=== PATIENT | male | born 1960 | race Caucasian/White ===

== ENCOUNTER 2020-01-29 19:29 | Inpatient (IN) | payer MEDICARE, SELFPAY ==
[2020-01-29 19:38] VITALS: BP 128/84; PULSE 98; RESP 18; TEMP 37.1; O2SAT 98; BMI 21.9
--- NOTE | 2020-01-29 19:54 | W.ED.PSYCH ---
HPI - Psych General: Chief Complaint: Psychiatric Symptoms Stated Complaint: neck pain/mhe Time Seen by Provider: 01/29/20 19:38 Source: patient Mode of arrival: ambulatory Limitations: no limitations History of Present Illness: HPI Narrative: Patient is a very nice 59-year-old male who presents to ED today with complaints of thoughts of self-harm, depression, feeling overwhelmed, anxiety. 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 Patient states he has been sober for several years now but states he is starting to have some bad thoughts regarding self-harm. He states I have been down this road before and I know what I am capable of doing . He has attempted suicide previously due to the pain. MD complaint: suicidal ideation and feels depressed Onset (ago): day(s) Duration: constant History of same: Yes Relieving factors: none Exacerbating factors: other (his chronic neck pain) Associated psychiatric symptoms: depression and suicidal ideation Associated symptoms: Reports depression and suicidal ideation; Deny auditory hallucinations, visual hallucinations or homicidal ideation If self harm: admits thoughts of self harm Review of Systems Const: Denies: fever(s) or chills Card: Denies: chest pain, palpitations, lightheadedness or syncope Resp: Denies: dyspnea GI: Denies: abdominal pain, nausea, vomiting or diarrhea Musc: Reports: neck pain Skin/Breast: Denies: rash Neuro: Denies: headache(s) Psych: Reports: anxiety, depression, hopelessness and suicidal ideation; Denies: visual hallucinations, auditory hallucinations or homicidal ideation [facility] ED PFSH: Social History Smoking and tobacco status: current every day smoker Physical Exam Const: COMMON NORMALS: no acute distress, average body habitus, patient oriented x3, no limitations, healthy appearing, alert and well nourished ORIENTATION/CONSCIOUSNESS: Yes oriented to person, Yes oriented to place and Yes oriented to time Neck/C-Spine: COMMON NORMALS: full ROM CERVICAL SPINE: Yes pain with cervical ROM and Yes Cervical spine tenderness Neuro: MONALISA COMA SCALE: document GCS findings Monalisa coma scale eye opening: Spontaneous [place] coma scale verbal response: Orientated Monalisa coma scale motor response: Obey commands [place] coma scale total score: 15 COMMON NORMALS: patient oriented x3, CN's II-XII intact bilaterally, moves all extremities, no focal motor deficits and no sensory deficits noted SENSORIUM/ORIENTATION: Yes alert, Yes oriented to person, Yes oriented to place and Yes oriented to time Psych: COMMON NORMALS: mental status grossly normal, Normal thought process present, cooperative, normal affect, speech normal, activity/motor behavior normal, denies hallucinations and denies homicidal ideation APPEARANCE: Yes grossly normal ATTITUDE: Yes calm ACTIVITY/MOTOR BEHAVIOR: Yes appropriate eye contact SPEECH: Yes normal speech MOOD & AFFECT: Yes euthymic mood THOUGHT PROCESS: Normal thought process present THOUGHT CONTENT: Yes Normal thought content present and Yes Suicidality present ATTENTION/CONCENTRATION: Yes attention grossly intact and Yes concentration grossly intact MEMORY/COGNITION: Yes memory grossly intact and Yes cognition grossly intact INSIGHT: Good insight present (Psych) JUDGEMENT: Good judgement present (Psych) Skin: COMMON NORMALS: no rashes or lesions noted GENERAL SKIN EXAM: no rashes or lesions noted MDM - Psych Lab Data: Labs: Lab Results 01/29/20 01/29/20 Range/Units 20:02 20:02 WBC 16.3 H (4.0-10.0) 10^3/ uL RBC 4.87 (4.1-5.3) 10^6/u L Hgb 15.0 (11.7-16.6) g/dL Hct 46.2 (42.0-52.0) % MCV 94.9 H (80-94) fL MCH 30.8 (28.0-34.0) pg MCHC 32.5 (30.0-36.0) g/dL RDW 12.7 (12.1-15.1) % Plt Count 407 H (130-400) 10^3/c mm MPV 9.6 (7.4-10.4) fL Neut % (Auto) 92.1 % Lymph % (Auto) 6.9 % Mchenry % (Auto) 0.2 % Eos % (Auto) 0.1 % Baso % (Auto) 0.3 % Neut # (Auto) 15.0 H (1.8-7.7) 10^3/u L Lymph # (Auto) 1.1 (0.8-4.8) 10^3/u L Mchenry # (Auto) 0.0 L (0.2-0.9) 10^3/u L Eos # (Auto) 0.0 (0.0-0.8) 10^3/u L Baso # (Auto) 0.1 (0.0-0.1) 10^3/u L Nucleated RBC % (a uto) 0 % Nucleated RBCs # 0.0 /100WBC Sodium 139 (136-145) mmol/L Potassium 4.1 (3.5-5.1) mmol/L Chloride 102 (98-107) mmol/L Carbon Dioxide 24 (22-29) mmol/L Anion Gap 17.1 (5-19) BUN 16 (6-20) mg/dL Creatinine 0.9 (0.7-1.2) mg/dL GFR Calculation 86.4 L (90-130) mL/min Glucose 192 H (65-115) mg/dL Calculated Osmolal ity 290 (285-295) mOsm/k g Calcium 9.3 (8.5-10.5) mg/dL Total Bilirubin 0.2 (0.15-1.2) mg/dL AST 16 (0-40) U/L ALT 16 (0-41) U/L Alkaline Phosphata se 79 (40-130) IU/L Total Protein 7.0 (6.6-8.7) g/dL Albumin 4.7 (3.5-5.2) g/dL Globulin 2.3 (1.3-4.6) g/dL Salicylates < 0.3 L (3-10) mg/dL Acetaminophen < 5.0 L (10-30) ug/mL Ethyl Alcohol < 10 (0-10) mg/dL Discharge Plan Discharge Patient Disposition: Admitted As Inpatient Admit Provider: Ian Holley Clinical Impression: Chronic neck pain, Suicidal ideation, Depression Condition: Stable Referrals: Suresh Holm [Primary Care Provider] - Coding Level of Care Code ED Office Support for Alexsandra Collins
[2020-01-29 20:08] LABS: Basophils # 0.1 10^3/uL (0.0-0.1); Basophils % 0.3 %; Eosinophils % 0.1 %; Hematocrit 46.2 % (42.0-52.0); Lymphocytes # 1.1 10^3/uL (0.8-4.8); Lymphocytes % 6.9 %; Mean Corpuscular HGB Conc 32.5 g/dL (30.0-36.0); Mean Corpuscular Hemoglobin 30.8 pg (28.0-34.0); Mean Corpuscular Volume 94.9 fL (80-94); Mean Platelet Volume 9.6 fL (7.4-10.4); Monocytes % 0.2 %; Neutrophils % 92.1 %; Nucleated Red Blood Cells % 0 %; Platelet Count 407 10^3/cmm (130-400); Red Blood Count 4.87 10^6/uL (4.1-5.3); Red Cell Distribution Width 12.7 % (12.1-15.1); White Blood Count 16.3 10^3/uL (4.0-10.0)
[2020-01-29 20:27] LABS: Alanine Aminotransferase 16 U/L (0-41); Albumin Level 4.7 g/dL (3.5-5.2); Alkaline Phosphatase 79 IU/L (40-130); Anion Gap 17.1 (5-19); Aspartate Amino Transferase 16 U/L (0-40); Blood Urea Nitrogen 16 mg/dL (6-20); Calcium 9.3 mg/dL (8.5-10.5); Carbon Dioxide 24 mmol/L (22-29); Chloride 102 mmol/L (98-107); Globulin 2.3 g/dL (1.3-4.6); Glomerular Filtration Rate 86.4 mL/min (90-130); Glucose 192 mg/dL (65-115); Osmolality Calculated 290 mOsm/kg (285-295); Potassium 4.1 mmol/L (3.5-5.1); Sodium 139 mmol/L (136-145); Total Bilirubin 0.2 mg/dL (0.15-1.2)
[2020-01-29 20:32] LABS: Acetaminophen < 5.0 ug/mL (10-30); Alcohol Level < 10 mg/dL (0-10); Salicylate < 0.3 mg/dL (3-10)
[2020-01-29 20:59] VITALS: BP 117/73; PULSE 80; RESP 18; O2SAT 96
[2020-01-29] MEDS: ketorolac 60 mg/2 mL INJ IM (21:33)
[2020-01-30 00:25] LABS: Amphetamines Screen Urine Negative (Negative); Barbiturates Screen Urine Negative (Negative); Benzodiazepines Screen Urine Negative (Negative); Cocaine Screen Urine Negative (Negative); Opiate Screen Urine Negative (Negative); PCP Screen Urine Negative (Negative); THC Screen Urine Negative (Negative)
[2020-01-30 00:46] VITALS: BP 148/86; PULSE 65; RESP 15; TEMP 36.5; O2SAT 99
--- NOTE | 2020-01-30 01:13 | PC.NURSE ---
Patient reported relief of pain from 9 to 6 after shot of Toradol in ED. He did not request additional pain medication.
--- NOTE | 2020-01-30 04:51 | PC.NURSE ---
when pt arrived to unit, PRN meds for sleep and anxiety were offered, but pt refused.
[2020-01-30 06:00] VITALS: BP 113/71; PULSE 66; RESP 15; TEMP 37.1; O2SAT 96
[2020-01-30] MEDS: acetaminophen 325 mg Tablet 650 MG PO (06:20)
--- NOTE | 2020-01-30 06:22 | PC.NURSE ---
pt given tylenol 650mg at this time for c/o headache rating 9/10. will recheck pain level with-in the next hour.
--- NOTE | 2020-01-30 10:01 | P.HP_ITS ---
Providers/Chief Complaint Admitting Physician: Ian Holley MD Primary Care Provider: Suresh Holm Chief Complaint: neck pain/mhe HPI NPU History of Present Illness Armando Olsen Jr is a 59 year old male who presented to the emergency room with reports of pain syndrome that he has not been able to manage, leaning to thoughts of suicide and low mood. He was admitted to the neuro-psychiatric unit for definitive treatment of those issues. He presents this morning reporting that his pain has been out of control recently. He reports he has rods in his neck from his cervical spine down to his thoracic spine. He reports that about five and a half to six months ago, he came to this area and went to a [facility] program to work on his addiction, reporting he has had significant issues with alcohol use. He reports that they did not allow for drinking or use of the pain medication that he had been using prior to that time, and he has been without drinking or using prescribed medications for pain since then. He reports that over the last couple of weeks the pain has gotten worse and he has not been sure how to manage. He started having thoughts to harm himself. He had been started on Cymbalta by his outpatient provider and just the day prior the Cymbalta was raised to 60 mg in hopes to manage the depression that he reports had developed secondary to the pain as well as hopefully get some pain benefit from the Cymbalta. We had a long discussion about how we approach people that are admitted to the unit that are complaining of pain, and explained that we do not randomly start pain medications to manage peoples complaints, but if we deem it necessary we will get a consult and have that marine engineering consultant identify if there would be some reason to intervene with pain management. That being said, we are very reluctant and the consultants are very resistant to the idea of someone coming in there instead of doing an outpatient process and identifying an outpatient provider who would not only evaluate and determine what medications to give, but to be the one to follow through on that, so we are not making a prescription that someone on the outpatient basis would prefer not to follow. He reports that he understands that but was obviously hopeful that we would move forward with something. Additionally, we discussed that from a standpoint of his depression, my approach would be to increase the Cymbalta since he had gotten some benefit from it, and given that he has only had a day of that medication, the right thing at this point would be to allow that medication to take effect. He endorses some parasuicidal behavior years ago but none recently. He endorses his feelings of hopelessness in relation to his pain, sometimes poor sleep, definitely describe passive wish and some anticipatory anxiety related to his pain. PSYCHIATRIC HISTORY: He does not report a long history of mental health treatment but does report recent treatment including hospitalization a couple years ago and some limited trials of medication. SUBSTANCE ABUSE HISTORY: He does report a history of significant alcohol use which has led to rehabs and he did have a DUI in the past. He denies any major use of marijuana or any other illicit drugs. FAMILY HISTORY: He does report having some mental health issues that run in the family and does report having a cousin who committed suicide over a girl some years ago. DEVELOPMENTAL HISTORY: He denies any significant issues with his mom?s or delivery of him. He reports he learned to walk and talk and met his developmental milestones on time. He reports that when he went to school, he did not require speech therapy, learning support, emotional support, or special education classes. PSYCHOSOCIAL HISTORY: He reports that his parents were together, and he does have a sister who he shares both parents with, but he denies any half siblings through either of his parents, but his parents did split at one point. He reports that his childhood was tough but good. He denies any emotional, physical, or sexual abuse. He reports he graduated from high school and did not have any additional training. He endorses being a heterosexual with his longest relationship being sixteen years. He reports he has been once and once but reports that he has been now as long as he has been . He does endorse having a child. 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 He reports that he worked and was very gainfully employed until about 2011, after which he has sporadic work, but he started having surgeries then and has been unable to function in the way he was before. He endorses having a place to stay with his significant other, with whom he has been with for some time now. LEGAL HISTORY: He has been in [facility] a couple of times he reports. MEDICAL HISTORY: Significant for injury of his spine which led to multiple surgeries over the last several years, which have rendered him disabled and he is currently on disability for his back. Meds NPU Home Medications Medication Instructions Recorded Confirmed Last Taken Type amlodipine 10 mg PO DAILY 01/30/20 01/30/20 Unknown History duloxetine [Cymbalta] 60 mg PO DAILY 01/30/20 01/30/20 Unknown History Allergies Allergy/AdvReac Type Severity Reaction Status Date / Time No Known Allergies Allergy Unverified 01/29/20 20:14 PFSH NPU PFSH: Social History Smoking and tobacco status: current every day smoker Mental Status Exam MSE Comments: This is a well-nourished, well-developed, white male, with adequate dress, grooming, and eye contact. No abnormal movements except for psychomotor retardation. Cooperative with exam in no acute distress. Speech was slightly decreased rate but normal volume. Mood described as depressed; affect congruent. Thought process, organized. Thought content: patient denied any suicidal or homicidal ideation, there were no delusions reported or noted, patient denied any auditory or visual hallucinations. Attention, concentration, and memory appear intact but were not formally tested. He is alert and oriented times three. Insight and judgment are limited. He did report at times the pain being at a point where he thought that he would be better off , or he would think for a moment he might want to do something to end it. Vitals/I&O/Wt Last Vital Signs Temp 98.7 F 01/30/20 06:00 Pulse 66 01/30/20 06:00 Resp 15 01/30/20 06:00 BP 113/71 01/30/20 06:00 Pulse Ox 96 01/30/20 06:00 Data NPU : 01/29/20 20:02 01/29/20 20:02 A&P Assessment and plan (1) Chronic neck pain: Status: Acute (2) Suicidal ideation: Status: Acute (3) Depression: Status: Acute Additional A&P Information This is a 59 year old, white male, with a long history of alcohol addiction with recent sobriety pushing up on six months with depression, which has seemed to be an offshoot of him losing his physical ability to work, as he has in the past, with current treatment for depression with recent increase in the medication the day prior to hospitalization. Continue current medication. Encourage individual, group, and milieu therapy. Continue q 15-minute checks for safety. Agree with continued sober living treatment, however the patient was coming to the end of the time he planned on spending at this mission program and is leaning towards outpatient services at the end of this hospitalization. Involuntary Hold Information 96 Hour Hold: 96 Hour Involuntary Admission: No Attestations NPU Medical Necessity Statement*: Inpatient hospitalization is medically necessary, and the clinically appropriate intervention at this time. He will be in the hospital for over two midnights. We will monitor medications and make changes as indicated. Likely length of stay two to four days. The patient was advised that we will not be intervening in relation to the pain syndrome, and that it would be best for him to follow-up with an outpatient provider. Coding Level of Care Code Acute Supervisor [employer] for Alexsandra Collins Diagnoses Chronic neck pain M54.2; G89.29 Suicidal ideation R45.851 Depression F32.9
[2020-01-30 14:00] VITALS: BP 110/66; PULSE 64; RESP 18; TEMP 36.8; O2SAT 96
[2020-01-30] MEDS: duloxetine 30 mg Capsule PO (19:00)
[2020-01-30] MEDS: trazodone 50 mg Tablet PO (21:35)
[2020-01-30] MEDS: hyDROXYzine 25 mg Capsule 50 MG PO (21:35)
[2020-01-30 22:00] VITALS: BP 105/64; PULSE 63; RESP 20; TEMP 36.9; O2SAT 97
[2020-01-31 06:00] VITALS: BP 95/61; PULSE 61; RESP 17; TEMP 36.7; O2SAT 97
[2020-01-31] MEDS: amlodipine 10 mg Tablet PO (08:31)
[2020-01-31] MEDS: duloxetine 60 mg Capsule PO (08:31)
--- NOTE | 2020-01-31 11:01 | P.PN_ITS ---
Subjective NPU Subjective: Interval history: Armando presents today reporting that he slept good. He reports that the Trazodone helped, and he would be fine with taking that moving forward. He talked a little more about coming here about six months ago with the ministry, and that he has been sober the whole time he has been here. He reports that he also stopped taking his pain medication at that time, and he has just gotten to a point where he feels like he needs something. He is accepting the fact that that is not something that we would do on the unit, and explained to him that it is mostly because we do not initiate something that someone else has to hold to, when that is not our expertise. He understood that. He appeared to speak quite differently about lethality today, reporting that he was never saying that he would do something like that, just that he had that thought from time to time that he would be better off than dealing with the pain, but he spoke very spiritually about everyone having a cross to bear. He has had a lot of blessings and this is just one of his difficulties. We discussed the risks, benefits, and alternatives of him discharging tomorrow, and he understood and agreed to proceed as is documented in this note. Mental Status Exam MSE Comments: This is a well-nourished, well-developed, white male, with adequate dress, grooming, and eye contact. No abnormal movements. Cooperative with exam in no acute distress. Speech was normal rate and volume. Mood descri bed as much better; affect congruent. Thought process, organized. Thought content: patient denied any suicidal or homicidal ideation, there were no delusions reported or noted, patient denied any auditory or visual hallucinations. Attention, concentration, and memory appeared intact but were not formally tested. Alert and oriented times three. Insight and judgment improving. Vitals/I&O/Wt Last Vital Signs Temp 97.9 F 01/31/20 22:00 Pulse 69 01/31/20 22:00 Resp 18 01/31/20 22:00 BP 104/62 01/31/20 22:00 Pulse Ox 96 01/31/20 22:00 Data NPU : 01/29/20 20:02 01/29/20 20:02 A&P Additional A&P Information (1) Chronic neck pain: (2) Suicidal ideation: (3) Depression: This is a 59 year old, white male, with a long history of alcohol addiction with recent sobriety pushing up on six months with depression, which has seemed to be an offshoot of him losing his physical ability to work, as he has in the past, with current treatment for depression with recent increase in the medication the day prior to hospitalization. Continue current medication. Encourage individual, group, and milieu therapy. Continue q 15-minute checks for safety. Agree with continued sober living treatment, however the patient was coming to the end of the time he planned on spending at this mission program and is leaning towards outpatient services at the end of this hospitalization. Involuntary Hold Information 96 Hour Hold: 96 Hour Involuntary Admission: No Attestations NPU Medical Necessity Statement*: Inpatient hospitalization is medically necess timmy, and the clinically appropriate intervention at this time. We will monitor medications and make changes as indicated. Likely length of stay 1-3 days. We will consider discharge tomorrow. Coding Level of Care Code Acute Ophthalmic Medical Assistant for Alexsandra Collins
[2020-01-31 13:23] VITALS: BP 114/71; PULSE 71; RESP 18; TEMP 36.7; O2SAT 96
[2020-01-31] MEDS: trazodone 50 mg Tablet PO (21:03)
--- NOTE | 2020-01-31 21:03 | PC.NURSE ---
PRN TRAZODONE PT REQUESTING SLEEP AID. ADMINISTERED TRAZODONE 50 MG PO. WILL MONITOR FOR MEDICATION EFFECTIVENESS.
[2020-01-31 22:00] VITALS: BP 104/62; PULSE 69; RESP 18; TEMP 36.6; O2SAT 96
[2020-02-01 06:00] VITALS: BP 105/67; PULSE 64; RESP 18; TEMP 36.7; O2SAT 96
[2020-02-01 08:37] VITALS: BP 105/67; PULSE 64; RESP 18; TEMP 36.7; O2SAT 96
--- NOTE | 2020-02-01 08:41 | P.DS_ITS ---
Diagnoses at Discharge Discharge Diagnosis (1) Chronic neck pain: Status: Acute (2) Suicidal ideation: Status: Resolved (3) Depression: Status: Acute Reason for Visit Reason for Visit: neck pain/mhe Brief History: Armando Olsen Jr is a 59 year old male who presented to the emergency room with reports of pain syndrome that he has not been able to manage, leaning to thoughts of suicide and low mood. He was admitted to the neuro-psychiatric unit for definitive treatment of those issues. He presents this morning reporting that his pain has been out of control recently. He reports he has rods in his neck from his cervical spine down to his thoracic spine. He reports that about five and a half to six months ago, he came to this area and went to a [email or web address] program to work on his addiction, reporting he has had significant issues with alcohol use. He reports that they did not allow for drinking or use of the pain medication that he had been using prior to that time, and he has been without drinking or using prescribed medications for pain since then. He reports that over the last couple of weeks the pain has gotten worse and he has not been sure how to manage. He started having thoughts to harm himself. He had been started on Cymbalta by his outpatient provider and just the day prior the Cymbalta was raised to 60 mg in hopes to manage the depression that he reports had developed secondary to the pain as well as hopefully get some pain benefit from the Cymbalta. We had a long discussion about how we approach people that are admitted to the unit that are complaining of pain, and explained that we do not randomly start pain medications to manage peoples complaints, but if we deem it necessary we will get a consult and have that solutions delivery consultant identify if there would be some reason to intervene with pain management. That being said, we are very reluctant and the consultants are very resistant to the idea of someone coming in there instead of doing an outpatient process and identifying an outpatient provider who would not only evaluate and determine what medications to give, but to be the one to follow through on that, so we are not making a prescription that someone on the outpatient basis would prefer not to follow. He reports that he understands that but was obviously hopeful that we would move forward with something. Additionally, we discussed that from a standpoint of his depression, my approach would be to increase the Cymbalta since he had gotten some benefit from it, and given that he has only had a day of that medication, the right thing at this point would be to allow that medication to take effect. He endorses some parasuicidal behavior years ago but none recently. He endorses his feelings of hopelessness in relation to his pain, sometimes poor sleep, definitely describe passive wish and some anticipatory anxiety related to his pain. PSYCHIATRIC HISTORY: He does not report a long history of mental health treatment but does report recent treatment including hospitalization a couple years ago and some limited trials of medication. SUBSTANCE ABUSE HISTORY: He does report a history of significant alcohol use which has led to rehabs and he did have a DUI in the past. He denies any major use of marijuana or any other illicit drugs. FAMILY HISTORY: He does report having some mental health issues that run in the family and does report having a cousin who committed suicide over a girl some years ago. DEVELOPMENTAL HISTORY: He denies any significant issues with his mom?s or delivery of him. He reports he learned to walk and talk and met his developmental milestones on time. He reports that when he went to school, he did not require speech therapy, learning support, emotional support, or special education classes. PSYCHOSOCIAL HISTORY: He reports that his parents were together, and he does have a sister who he shares both parents with, but he denies any half siblings through either of his parents, but his parents did split at one point. He reports that his childhood was tough but good. He denies any emotional, physical, or sexual abuse. He reports he graduated from high school and did not have any additional training. He endorses being a heterosexual with his longest relationship being sixteen years. He reports he has been once and once but reports that he has been now as long as he has been . He does endorse having a child. He denies that he was in the and does endorse being a [employer]. He reports that he worked and was very gainfully employed until about 2011, after which he has sporadic work, but he started having surgeries then and has been unable to function in the way he was before. He endorses having a place to stay with his significant other, with whom he has been with for some time now. LEGAL HISTORY: He has been in intermediate a couple of times he reports. MEDICAL HISTORY: Significant for injury of his spine which led to multiple surgeries over the last several years, which have rendered him disabled and he is currently on disability for his back. Hospital Course Hospital Course Armando presented to the emergency room endorsing suicidal thoughts and depression and was admitted to the neuropsychiatric unit for definitive treatment of those issues. Only units he was desiring definitive treatment for his pain and obviously that is not something we do but he quickly acclimated to the individual, group and milieu therapies provided. Ultimately he used the time to develop a plan for what he was going to do next and utilize the assistance of the sulci were obtained discharge planners to set that plan and motion. We continued his medications while he was in the hospital. In regards to his initial presentation he showed significant improvement. During the hospitalization, the patient had routine laboratory studies which were within normal limits except for a few outliers. Additionally there was a general medical evaluation, which was also within normal limits revealed no processes. Discharge Summary At the time of discharge the patient was absent lethality, there was no psychosis reported or noted. Mood and anxiety were well managed. The patient endorsed the plan to avoid all drugs of abuse and follow-up with the recommendations of the treatment team. The patient was evaluated and deemed to be absent credible lethality, and had achieved the maximum benefit from an inpatient hospitalization, so he was discharged. Involuntary Hold Information 96 Hour Hold: 96 Hour Involuntary Admission: No Mental Status Exam MSE Comments: This a well-nourished well-developed white female with adequate dressed, grooming and eye contact. No abnormal movements. Cooperative with exam and no acute distress. Speech is normal rate and volume. Mood described as good, affect congruent. Thought process organized. Thought content: Patient denied any suicidal or homicidal ideation, there were no delusions reported noted, auditory or visual hallucinations were denied. Attention and concentration were intact, and memory was reliable but none were formally tested. The patient was alert and oriented ?3. Insight and judgment were fair and improving. Discharge Data Vitals: Last Vital Signs Temp 98.1 F 02/01/20 08:37 Pulse 64 02/01/20 08:37 Resp 18 02/01/20 08:37 BP 105/67 02/01/20 08:37 Pulse Ox 96 02/01/20 08:37 Discharge Plan Discharge Patient Disposition: Home, Self-Care Condition: Stable Prescriptions: Continued amlodipine 10 mg Tablet 10 mg PO DAILY 30 Days Qty: 30 RF: 1 Cymbalta 60 mg Capsule,Delayed Release(Dr/Ec) 60 mg PO DAILY 30 Days Qty: 30 RF: 1 Discharge Orders: Discharge Order (Routine); Ordered 02/01/20 Ordered By: Ian Holley Referrals: Suresh Holm [Other] - 4-7 days (for primary care) Bobyb Brenner [Other] - 4-7 days (for individual therapy) Discharge Diet: Regular Discharge Activity: Resume usual activity Patient Instructions: Depression (DC) Discharge Date/Time: 02/01/20 10:30 Discharge Attestations NPU Time Spent in Discharge Care*: less than 30 min Specific Discharge Activities: Specific discharge activities: educating patient, discussing with showcase trimmer/social workers/dc planners, documenting/other paperwork and evaluating patient/reviewing data Coding Level of Care Code Acute Screw Driver Operator for Alexsandra Fwd Diagnoses Chronic neck pain M54.2; G89.29 Suicidal ideation R45.851 Depression F32.9
[2020-02-01] MEDS: amlodipine 10 mg Tablet PO (08:50)
[2020-02-01] MEDS: duloxetine 60 mg Capsule PO (08:50)
== END 2020-02-01 10:30 | disposition home or self-care (01) | DRG 881 ==
LOC: ER 21:04 → NP 22:19
PROVIDERS: Emergency Medicine; Admitting Provider Psychiatry & Neurology Psychiatry; PCP Physician Assistant Medical; Visit Provider Psychiatry & Neurology Psychiatry
DX: F32.9 Major depressive disorder, single episode, unspecified (principal); R45.851 Suicidal ideations; F10.20 Alcohol dependence, uncomplicated; Z81.8 Family history of other mental and behavioral disorders; F17.210 Nicotine dependence, cigarettes, uncomplicated; G89.29 Other chronic pain; M54.2 Cervicalgia
CPT/HCPCS: 12345; 36415; 80053; 80306; 80307; 85025; 96372; 99284; J1885